=== PATIENT | female | born 1960 | race Caucasian/White ===

== ENCOUNTER → 2018-05-02 12:16 | Outpatient (CLI) | payer OTHER, SELFPAY ==
--- NOTE | 2018-05-02 | DI.MG.S_ITS ---
BILATERAL DIGITAL SCREENING MAMMOGRAM 3D/2D WITH CAD: 05/02/2018 CLINICAL: Routine screening. Family history of breast cancer. Comparison is made to exams dated: 07/13/2016 mammogram, 07/01/2015 mammogram, and 06/05/2014 mammogram - [facility]. The tissue of both breasts is heterogeneously dense. This may lower the sensitivity of mammography. Current study was also evaluated with a Computer Aided Detection (CAD) system. There is a focal asymmetry with grouped calcifications in the right breast at 8 o'clock anterior depth. No other significant masses, calcifications, or other findings are seen in either breast. IMPRESSION: INCOMPLETE: NEEDS ADDITIONAL IMAGING EVALUATION The focal asymmetry in the right breast is indeterminate. Additional views with possible ultrasound are recommended. NOTE: For mammograms, a report in lay terms will be sent to the patient. Approximately 15% of breast malignancies will not be visualized mammographically. In the management of a palpable breast mass, a negative mammogram must not discourage biopsy of a clinically suspicious lesion. Electronically Signed By: Lashon lane/gracy:05/03/2018 14:24:15 letter sent: Additional Imaging Needed ACR BI-RADS Category 0: Incomplete 3340F
== END ==
PROVIDERS: PCP Family Medicine; Visit Provider Family Medicine
DX: Z12.31 Encounter for screening mammogram for malignant neoplasm of breast (principal); Z80.3 Family history of malignant neoplasm of breast
CPT/HCPCS: 77063; 77067

== ENCOUNTER → 2018-06-07 13:47 | Outpatient (CLI) | payer OTHER, SELFPAY ==
--- NOTE | 2018-06-07 | DI.MG.S_ITS ---
UNILATERAL RIGHT DIGITAL DIAGNOSTIC MAMMOGRAM 3D/2D WITH ADDITIONAL VIEWS: 06/07/2018 CLINICAL: Additional evaluation requested from prior study. Comparison is made to exams dated: 05/02/2018 mammogram, 07/13/2016 mammogram, and 07/01/2015 mammogram - [facility]. The tissue of right breast is heterogeneously dense. This may lower the sensitivity of mammography. There is 0.6 cm oval low density focal asymmetry with an indistinct margin and grouped punctate calcifications in the right breast at 7 o'clock anterior depth. No other significant masses or calcifications are seen in the breast. IMPRESSION: INCOMPLETE: NEEDS ADDITIONAL IMAGING EVALUATION The 0.6 cm oval low density focal asymmetry in the right breast is indeterminate. An ultrasound is recommended. This exam was interpreted at Station ID: [id number]. NOTE: For mammograms, a report in lay terms will be sent to the patient. Approximately 15% of breast malignancies will not be visualized mammographically. In the management of a palpable breast mass, a negative mammogram must not discourage biopsy of a clinically suspicious lesion. Electronically Signed By: Hector mark/gracy:06/07/2018 14:18:13 letter sent: Need Ultrasound ACR BI-RADS Category 0: Incomplete 3340F
--- NOTE | 2018-06-07 | DI.US.S_ITS ---
LIMITED ULTRASOUND OF RIGHT BREAST AND AXILLA: 06/07/2018 CLINICAL: Patient returns today to evaluate a density in the right breast. Comparison is made to exams dated: 06/07/2018 mammogram, 05/02/2018 mammogram, 07/13/2016 mammogram, 07/01/2015 mammogram, and 06/05/2014 mammogram - [facility]. Color flow and real-time ultrasound of the right breast axilla were performed on the areas of interest. There is 0.6 cm x 0.4 cm x 0.7 cm oval mass with an indistinct and microlobulated margin in the right breast at 8 o'clock anterior depth. This oval mass is hypoechoic with posterior acoustic shadowing. This correlates with mammography findings. There are related calcifications. Color flow imaging demonstrates that there is no increase in vascularity. No abnormalities were seen sonographically in the right axilla. IMPRESSION: SUSPICIOUS OF MALIGNANCY The 0.6 cm x 0.4 cm x 0.7 cm oval mass in the right breast is at an intermediate suspicion for malignancy. An ultrasound guided biopsy is recommended. The findings were reviewed with the patient at the conclusion of the study. This exam was interpreted at Station ID: [id number]. Electronically Signed By: Hector mark/:06/07/2018 14:53:28 letter sent: Biopsy Required Ultrasound BI-RADS: 4b Suspicious abnormality - intermediate suspicion of malignancy
== END ==
PROVIDERS: PCP Family Medicine; Visit Provider Family Medicine
DX: R92.8 Other abnormal and inconclusive findings on diagnostic imaging of breast (principal); N63.13 Unspecified lump in the right breast, lower outer quadrant
CPT/HCPCS: 76642; 77065; G0279

== ENCOUNTER → 2018-07-12 12:37 | Outpatient (CLI) | payer OTHER, SELFPAY ==
--- NOTE | 2018-07-12 | PATH_ITS ---
[facility] Accession Number: [id number] . 01 Material submitted: . RIGHT BREAST . 01 Clinical history: . MASS 8:00 2CM FN . 01 Diagnosis: Right Breast, Mass at 8 o'clock, 2 cm from Nipple, Biopsy: Breast tissue with portions of cyst wall. Fibrocystic change including cysts, usual ductal hyperplasia, apocrine metaplasia, and fibrosis. Microcalcifications focally present in association with apocrine metaplasia. Negative for atypia, carcinoma in situ and invasive malignancy. [facility]/07/14/2018 . 01 Comment: Deeper levels examined. . 01 Electronically signed: . Betty Fuentes MD, Pathologist NPI- [id number] . 01 Gross description: . Received one formalin-filled container labeled with the patient's name and designated right breast mass, 8 o'clock, 2 cm FN. The specimen is received with plastic filter, sample loose in container. The specimen consists of multiple fragments of yellow-stearns soft tissue, which aggregate to 2.0 x 2.0 x 0.3 cm. The specimen is filtered, wrapped and entirely submitted in one cassette. Collection date 07/12/2018. Collection time per container is 1:36 p.m. Total fixation time 12 hours up to 24. ([facility]:[id number]) /[facility] . 01 Pathologist provided ICD-10: N60.11 . 01 CPT . 550599 Performed at: [address] [address], [place], [place] [id number] MD Hector Lora MD Phone: [phone]
--- NOTE | 2018-07-12 | DI.MG.S_ITS ---
UNILATERAL RIGHT DIGITAL DIAGNOSTIC MAMMOGRAM POST-NEEDLE BIOPSY: 07/12/2018 CLINICAL: Right breast mass. Comparison is made to exams dated: 06/07/2018 mammogram, 05/02/2018 mammogram, and 07/13/2016 mammogram - [facility]. The tissue of right breast is heterogeneously dense. This may lower the sensitivity of mammography. There is a marker clip in the appropriate position in the right breast at 8 o'clock anterior depth. This marker clip placement is at the biopsy site. IMPRESSION: POST PROCEDURE MAMMOGRAM FOR MARKER PLACEMENT There was a successful marker clip placement in the right breast anterior depth. NOTE: For mammograms, a report in lay terms will be sent to the patient. Approximately 15% of breast malignancies will not be visualized mammographically. In the management of a palpable breast mass, a negative mammogram must not discourage biopsy of a clinically suspicious lesion. Electronically Signed By: Jared arnold/:07/18/2018 10:25:29 ACR BI-RADS Category Post-procedure mammogram for marker placement
--- NOTE | 2018-07-12 | DI.US.S_ITS ---
ULTRASOUND GUIDED BIOPSY RIGHT BREAST USING VACUUM DEVICE WITH MARKING DEVICE INSERTED: 07/12/2018 CLINICAL: Right breast mass. PATIENT CONSENT: Risks (minor bleeding, infection, vasovagal reaction and repeat procedure), benefits and alternatives were explained to the patient and written informed consent was obtained. Correlation is made to exams dated: 06/07/2018 ultrasound, 06/07/2018 mammogram, 05/02/2018 mammogram, 07/13/2016 mammogram, and 07/01/2015 mammogram - [facility]. An ultrasound guided biopsy using real-time ultrasound was performed for the irregular shaped mass located in the right breast at 8 o'clock posterior depth. The skin was prepped in the usual manner. The abnormality was approached from the lateral aspect. A biopsy needle was placed adjacent to the abnormality under ultrasound guidance. Once the needle was documented to be in the correct location, six specimens were obtained using the Mammotome biopsy system. A clip was inserted into the biopsy cavity. The specimens were sent to the laboratory for pathological analysis. IMPRESSION: ULTRASOUND GUIDED BIOPSY BENIGN Ultrasound guided biopsy of the mass in the right breast at 8 o'clock posterior depth was successful. Pathology indicates benign fibrocystic changes, apocrine metaplasia with microcalcifications, usual ductal hyperplasia, cysts, and fibrosis. Findings are concordant with mammogram and ultrasound. Recommend return to screening mammography. This exam was interpreted at Station ID: [id number]. Jared arnold,ddp/:07/18/2018 13:53:59
== END ==
PROVIDERS: PCP Family Medicine; Visit Provider Family Medicine
DX: N60.11 Diffuse cystic mastopathy of right breast (principal); N60.81 Other benign mammary dysplasias of right breast
CPT/HCPCS: 19083; 77065

== ENCOUNTER → 2019-05-01 15:03 | Outpatient (CLI) | payer OTHER, SELFPAY ==
--- NOTE | 2019-05-01 | DI.RAD.S_ITS ---
PROCEDURE: XR FOOT LT MIN 3V INDICATIONS: left knee with weight bearing/left foot xray TECHNIQUE: 3 views of the foot were acquired. COMPARISON: None. FINDINGS: Bones: No definite fractures or dislocations. Small well-corticated ossicle medial to the navicular bone is favored to represent an accessory os carotid and avulsion fracture. No suspicious bony lesions. Minimal lucency in the calcaneus. Soft tissues: No tibiotalar joint effusion. Achilles tendon appears normal. IMPRESSION: No definite osseous abnormality. Dictated by: Major Damon M.D. on 05/01/2019 at 16:32 Approved by: Major Damon M.D. on 05/01/2019 at 16:35
--- NOTE | 2019-05-01 | DI.RAD.S_ITS ---
PROCEDURE: XR KNEE LT 3V INDICATIONS: left knee pain/left foot pain TECHNIQUE: 3 views of the knee were acquired. COMPARISON: None. FINDINGS: Bones: No fractures or dislocations. Medial joint space narrowing. Small osteophytes. No suspicious bony lesions. Soft tissues: Joint effusion is present. Small quadriceps tendon enthesophyte. No suspicious soft tissue calcifications. IMPRESSION: Moderate DJD of the left knee. Dictated by: Major Damon M.D. on 05/01/2019 at 16:31 Approved by: Major Damon M.D. on 05/01/2019 at 16:32
== END ==
PROVIDERS: PCP Family Medicine; Visit Provider Family Medicine
DX: M25.572 Pain in left ankle and joints of left foot (principal); M25.562 Pain in left knee; M17.12 Unilateral primary osteoarthritis, left knee
CPT/HCPCS: 73562; 73630

== ENCOUNTER → 2020-02-20 14:17 | Outpatient (CLI) | payer OTHER, SELFPAY ==
[2020-02-20 15:59] LABS: BUN Creatinine Ratio 27.8 (6-22); Blood Urea Nitrogen 20 mg/dL (7-17); Calcium 9.7 mg/dL (8.4-10.2); Carbon Dioxide 27 mmol/L (22-32); Chloride 102 mmol/L (98-107); Estimated Glomerular Filt Rate > 60.0 mL/min (>60); Glucose 119 mg/dL (80-110); HEMOLYSIS < 15 (0-50); Potassium 4.3 mmol/L (3.4-5.1); Sodium 139 mmol/L (137-145)
== END ==
PROVIDERS: PCP Nurse Practitioner Family; Referring Provider Nurse Practitioner; Visit Provider Nurse Practitioner
DX: I42.0 Dilated cardiomyopathy (principal)
CPT/HCPCS: 36415; 80048

== ENCOUNTER → 2020-04-23 12:54 | Outpatient (CLI) | payer OTHER, SELFPAY ==
--- NOTE | 2020-04-23 | DI.MG.S_ITS ---
BILATERAL DIGITAL SCREENING MAMMOGRAM 3D/2D WITH CAD: 04/23/2020 CLINICAL: Routine screening. Family history of breast cancer. Comparison is made to exams dated: 07/12/2018 mammogram, 06/07/2018 mammogram, 05/02/2018 mammogram, and 07/13/2016 mammogram - [facility]. The tissue of both breasts is heterogeneously dense. This may lower the sensitivity of mammography. Current study was also evaluated with a Computer Aided Detection (CAD) system. There is an irregular asymmetry with a spiculated margin and fine calcifications in the right breast posterior depth lateral region seen on the craniocaudal view only. No other significant masses, calcifications, or other findings are seen in either breast. IMPRESSION: INCOMPLETE: NEEDS ADDITIONAL IMAGING EVALUATION The irregular asymmetry in the right breast is indeterminate. A diagnostic mammogram and ultrasound is recommended. This exam was interpreted at Station ID: [id number]. NOTE: For mammograms, a report in lay terms will be sent to the patient. Approximately 15% of breast malignancies will not be visualized mammographically. In the management of a palpable breast mass, a negative mammogram must not discourage biopsy of a clinically suspicious lesion. Electronically Signed By: Katheryn dos santos/gracy:04/23/2020 17:12:16 letter sent: Additional Imaging Needed ACR BI-RADS Category 0: Incomplete 3340F
== END ==
PROVIDERS: PCP Nurse Practitioner Family; Referring Provider Nurse Practitioner Family; Visit Provider Nurse Practitioner Family
DX: Z12.31 Encounter for screening mammogram for malignant neoplasm of breast (principal); Z80.3 Family history of malignant neoplasm of breast
CPT/HCPCS: 77063; 77067

== ENCOUNTER → 2020-05-15 13:18 | Outpatient (CLI) | payer OTHER, SELFPAY ==
--- NOTE | 2020-05-15 | DI.MG.S_ITS ---
UNILATERAL RIGHT DIGITAL DIAGNOSTIC MAMMOGRAM 3D/2D WITH ADDITIONAL VIEWS: 05/15/2020 CLINICAL: Additional evaluation requested from prior study. Comparison is made to exams dated: 04/23/2020 mammogram, 07/12/2018 mammogram, and 06/07/2018 mammogram - [facility]. The tissue of right breast is heterogeneously dense. This may lower the sensitivity of mammography. The previously seen asymmetry in the right breast superior region disperses on spot compression views, compatible with normal fibroglandular breast tissue. There are scattered diffuse calcifications in the right breast. No significant masses, calcifications, or other findings are seen in the breast. IMPRESSION: BENIGN There is no mammographic evidence of malignancy. A 1 year screening mammogram is recommended. This exam was interpreted at Station ID: [id number]. NOTE: For mammograms, a report in lay terms will be sent to the patient. Approximately 15% of breast malignancies will not be visualized mammographically. In the management of a palpable breast mass, a negative mammogram must not discourage biopsy of a clinically suspicious lesion. Electronically Signed By: Ej walden/gracy:05/15/2020 13:54:47 letter sent: Normal Exam ACR BI-RADS Category 2: Benign Finding(s) 3342F
== END ==
PROVIDERS: PCP Nurse Practitioner Family; Referring Provider Nurse Practitioner Family; Visit Provider Nurse Practitioner Family
DX: R92.8 Other abnormal and inconclusive findings on diagnostic imaging of breast (principal)
CPT/HCPCS: 77065; G0279

== ENCOUNTER → 2020-09-04 14:53 | Outpatient (CLI) | payer OTHER, SELFPAY ==
[2020-09-04 16:27] LABS: BUN Creatinine Ratio 32.7 (6-22); Blood Urea Nitrogen 18 mg/dL (7-17); Calcium 9.3 mg/dL (8.4-10.2); Carbon Dioxide 31 mmol/L (22-32); Chloride 105 mmol/L (98-107); Estimated Glomerular Filt Rate > 60.0 mL/min (>60); Glucose 115 mg/dL (80-110); HEMOLYSIS < 15 (0-50); Potassium 3.9 mmol/L (3.4-5.1); Sodium 140 mmol/L (137-145)
== END ==
PROVIDERS: PCP Nurse Practitioner Family; Referring Provider Internal Medicine Cardiovascular Disease; Visit Provider Internal Medicine Cardiovascular Disease
DX: I50.20 Unspecified systolic (congestive) heart failure (principal)
CPT/HCPCS: 36415; 80048

== ENCOUNTER → 2021-05-06 15:58 | Outpatient (CLI) | payer OTHER, SELFPAY ==
--- NOTE | 2021-05-06 | DI.MG.S_ITS ---
BILATERAL DIGITAL SCREENING MAMMOGRAM 3D/2D WITH CAD: 05/06/2021 CLINICAL: Routine screening. Family history of breast cancer. Comparison is made to exams dated: 05/15/2020 mammogram, 04/23/2020 mammogram, 07/12/2018 mammogram, 06/07/2018 mammogram, 05/02/2018 mammogram, and 07/13/2016 mammogram - [facility]. The tissue of both breasts is heterogeneously dense. This may lower the sensitivity of mammography. Current study was also evaluated with a Computer Aided Detection (CAD) system. There are benign calcifications in both breasts. No significant masses, calcifications, or other findings are seen in either breast. There has been no significant interval change. IMPRESSION: BENIGN There is no mammographic evidence of malignancy. A 1 year screening mammogram is recommended. This exam was interpreted at Station ID: [id number]. NOTE: For mammograms, a report in lay terms will be sent to the patient. Approximately 15% of breast malignancies will not be visualized mammographically. In the management of a palpable breast mass, a negative mammogram must not discourage biopsy of a clinically suspicious lesion. Electronically Signed By: Vicente Arellano acr/penrad:05/06/2021 17:43:50 copy to: Christopher Ge letter sent: Normal Exam ACR BI-RADS Category 2: Benign Finding(s) 3342F
== END ==
PROVIDERS: PCP Nurse Practitioner Family; Referring Provider Nurse Practitioner Family; Visit Provider Nurse Practitioner Family
DX: Z12.31 Encounter for screening mammogram for malignant neoplasm of breast (principal); Z80.3 Family history of malignant neoplasm of breast
CPT/HCPCS: 77063; 77067

== ENCOUNTER → 2022-05-28 15:12 | Outpatient (CLI) | payer OTHER, SELFPAY ==
--- NOTE | 2022-05-28 | DI.MG.S_ITS ---
BILATERAL DIGITAL SCREENING MAMMOGRAM 3D/2D WITH CAD: 05/28/2022 CLINICAL: Routine screening. Family history of breast cancer. Comparison is made to exams dated: 05/06/2021 mammogram, 04/23/2020 mammogram, and 05/02/2018 mammogram - [facility]. Both breasts are heterogeneously dense, which may obscure small masses (category c / 51-75% glandular tissue). Current study was also evaluated with a Computer Aided Detection (CAD) system. There are benign calcifications in both breasts. There also is a biopsy clip in the right breast. No significant masses, calcifications, or other findings are seen in either breast. There has been no significant interval change. IMPRESSION: BENIGN There is no mammographic evidence of malignancy. A 1 year screening mammogram is recommended. Based on the Tyrer Cuzick model (a risk assessment model) the patient's lifetime risk is 10.6% and her 10 year risk is 4.8%. According to the ACR, ACS, and NCCN guidelines, an annual breast MRI exam along with mammogram is recommended if the patient's lifetime risk is 20% or greater. This exam was interpreted at Station ID: [id number]. NOTE: For mammograms, a report in lay terms will be sent to the patient. Approximately 15% of breast malignancies will not be visualized mammographically. In the management of a palpable breast mass, a negative mammogram must not discourage biopsy of a clinically suspicious lesion. Electronically Signed By: Katheryn dos santos/gracy:05/28/2022 18:10:03 copy to: Christopher Ge letter sent: Normal Exam ACR BI-RADS Category 2: Benign Finding(s) 3342F
== END ==
PROVIDERS: PCP Nurse Practitioner Family; Referring Provider Nurse Practitioner Family; Visit Provider Nurse Practitioner Family
DX: Z12.31 Encounter for screening mammogram for malignant neoplasm of breast (principal); Z80.3 Family history of malignant neoplasm of breast
CPT/HCPCS: 77063; 77067

== ENCOUNTER → 2023-01-24 15:34 | Outpatient (CLI) | payer OTHER, SELFPAY ==
[2023-01-24 16:41] LABS: Add Manual Diff / Slide Review NO; Basophils Absolute Auto 100 /uL (0-100); Basophils Percent Auto 0.9 % (0-2); Eosinophils Absolute Auto 100 /uL (0-450); Eosinophils Percent Auto 1.9 % (2-4); Hematocrit 43.7 % (36-46); Hemoglobin 14.9 g/dL (12.0-16.0); Lymphocytes Absolute Auto 2900 /uL (1100-4500); Lymphocytes Percent Auto 38.1 % (25-40); Mean Corpuscular HGB Conc 34.1 % (30-36); Mean Corpuscular Volume 93.9 fL (80-100); Monocytes Absolute Auto 500 /uL (0-900); Neutrophils Absolute Auto 4000 /uL (1500-7000); Neutrophils Percent Auto 53.1 % (50-75); Platelet Count 316 X10^3/uL (150-400); Red Blood Cell Count 4.66 X10^6/uL (4.0-5.2); Red Cell Distribution Width 12.8 % (11.6-14.8); White Blood Cell Count 7.6 X10^3/uL (4.5-11.0)
[2023-01-24 17:41] LABS: BUN Creatinine Ratio 18.4 (6-22); Blood Urea Nitrogen 9 mg/dL (7-17); Calcium 8.9 mg/dL (8.4-10.2); Carbon Dioxide 26 mmol/L (22-32); Chloride 102 mmol/L (98-107); Cholesterol 205 mg/dL (140-199); Estimated Glomerular Filt Rate > 60 mL/min (>60); Glucose 135 mg/dL (80-110); HDL Cholesterol 60 mg/dL (40-60); HEMOLYSIS < 15 (0-50); LDL Cholesterol Calculated 108 mg/dL (<100); Potassium 3.9 mmol/L (3.4-5.1); Sodium 137 mmol/L (137-145); Triglycerides 183 mg/dL (35-150)
== END ==
PROVIDERS: PCP Nurse Practitioner Family; Referring Provider Internal Medicine Cardiovascular Disease; Visit Provider Internal Medicine Cardiovascular Disease
DX: E78.5 Hyperlipidemia, unspecified (principal); I10 Essential (primary) hypertension
CPT/HCPCS: 36415; 80048; 80061; 85025

== ENCOUNTER → 2023-05-30 11:03 | Outpatient (CLI) | payer OTHER, SELFPAY ==
--- NOTE | 2023-05-30 | DI.MG.S_ITS ---
BILATERAL DIGITAL SCREENING MAMMOGRAM 3D/2D WITH CAD: 05/30/2023 CLINICAL: Routine screening. Family history of breast cancer. Comparison is made to exams dated: 05/28/2022 mammogram, 05/06/2021 mammogram, and 04/23/2020 mammogram - [facility]. Both breasts are heterogeneously dense, which may obscure small masses (category c / 51-75% glandular tissue). Current study was also evaluated with a Computer Aided Detection (CAD) system. There is a focal asymmetry in the right breast at 1 o'clock anterior depth. No other significant masses, calcifications, or other findings are seen in either breast. IMPRESSION: INCOMPLETE: NEEDS ADDITIONAL IMAGING EVALUATION The focal asymmetry in the right breast is indeterminate. Additional views with possible ultrasound are recommended. Based on the Tyrer Cuzick model (a risk assessment model) the patient's lifetime risk is 10.2% and her 10 year risk is 4.8%. According to the ACR, ACS, and NCCN guidelines, an annual breast MRI exam along with mammogram is recommended if the patient's lifetime risk is 20% or greater. This exam was interpreted at Station ID: [id number]. NOTE: For mammograms, a report in lay terms will be sent to the patient. Approximately 15% of breast malignancies will not be visualized mammographically. In the management of a palpable breast mass, a negative mammogram must not discourage biopsy of a clinically suspicious lesion. Electronically Signed By: Lashon lane/gracy:05/30/2023 14:30:04 copy to: Christopher Ge letter sent: Additional Imaging Needed ACR BI-RADS Category 0: Incomplete 3340F
== END ==
PROVIDERS: PCP Nurse Practitioner Family; Referring Provider Nurse Practitioner Family; Visit Provider Nurse Practitioner Family
DX: Z12.31 Encounter for screening mammogram for malignant neoplasm of breast (principal); Z80.3 Family history of malignant neoplasm of breast
CPT/HCPCS: 77063; 77067

== ENCOUNTER 2023-06-16 21:02 | Emergency (ER) | payer OTHER, SELFPAY ==
[2023-06-16] VITALS (14 sets, daily range): BP systolic 150–224; BP diastolic 72–93; PULSE 52–100; RESP 24; TEMP 36.4; O2SAT 81–100; BMI 36.5
--- NOTE | 2023-06-16 21:33 | DI.CT.S_ITS ---
PROCEDURE: CT ABDOMEN PELVIS W CON INDICATIONS: diffuse abd pain TECHNIQUE: After the administration of oral and IV contrast, axial sections were acquired from the lung bases to the pubic symphysis. Coronal and sagittal reformats were performed. For radiation dose reduction, the following was used: automated exposure control, adjustment of mA and/or kV according to patient size. COMPARISON: None. FINDINGS: Image quality: Excellent. Lung bases: Unremarkable. Heart: No significant findings. ABDOMEN: Liver: No solid mass. Hepatic steatosis is present. Gallbladder: Removed. Biliary ducts: No biliary dilation. Pancreas: No ductal dilation. Spleen: Size is within normal limits. Adrenal Glands: No adrenal nodules. Kidneys and Ureters: No hydronephrosis. No solid mass. No complex renal cystic lesion which requires follow up. Stomach and Bowel: There is wall thickening with inflammatory change of the descending and sigmoid colon with diverticula. No evidence of abscess or perforation.. Hiatal hernia is present with distal esophageal thickening. Peritoneum: No abnormal intraperitoneal fluid. No free air. Ventral Wall: No hernia. Abdominal Nodes: No retroperitoneal or mesenteric adenopathy by size criteria. Vessels: Aorta and inferior vena cava are normal in size. PELVIS: Pelvic Organs: Unremarkable. Bladder: Unremarkable. Pelvic Nodes: No enlarged lymph nodes. Miscellaneous: No inguinal hernias are seen. Bones: No aggressive osseous abnormality. IMPRESSION: Thickening and inflammatory change of the descending and sigmoid colon with diverticula most consistent with colitis secondary to diverticulitis. Dictated by: Shaniqua Holley M.D. on 06/16/2023 at 23:13 Approved by: Shaniqua Holley M.D. on 06/16/2023 at 23:16
--- NOTE | 2023-06-16 21:33 | ED.NAVMDI ---
HPI - Nausea/Vomiting/Diarrhea General Chief complaint: Nausea/Vomiting/Diarrhea Stated complaint: V/D/Cramps/ stomach pain/ T-0 Time Seen by Provider: 06/16/23 21:20 Source: patient Mode of arrival: Wheelchair History of Present Illness HPI Narrative: This 62-year-old female with a history of type 2 diabetes and multiple previous abdominal surgeries presenting with diffuse abdominal pain nausea vomiting and diarrhea. States that symptoms began about 4 hours prior to arrival. Had diffuse crampy abdominal pain mainly lower and then developed diarrhea which is nonbloody. Has also had some nausea and vomiting. Says that her symptoms have improved although her abdomen still feels diffusely uncomfortable. Bowel habits were normal previous to this. She is not had fevers, she does say that she felt hot and cold with this. Said that she had a hamburger for lunch. Also reports that she had been having episodic crampy abdominal pain and diarrhea for a few months but has not seen her primary care provider about this. She is status post cholecystectomy, says that she had an exploratory laparotomy for abdominal pain many years ago and had bilateral inguinal hernia repairs as an infant. Related Data Home Medications Medication Instructions Recorded Confirmed aspirin 81 mg tablet,delayed 81 mg PO QDAY ##0 02/09/17 12/04/19 release ferrous sulfate 325 mg (65 mg 27 mg PO QDAY ##0 02/09/17 12/04/19 iron) tablet (Iron (ferrous sulfate)) metoprolol succinate 50 mg 50 mg PO BID ##0 02/09/17 12/04/19 tablet,extended release 24 hr (Toprol XL) ascorbic acid (vitamin C) 500 mg 500 mg PO DAILY 12/04/19 12/04/19 capsule atorvastatin 40 mg tablet 40 mg PO DAILY 12/04/19 12/04/19 benazepril 20 mg tablet 20 mg PO DAILY 12/04/19 12/04/19 cholecalciferol (vitamin D3) 125 125 mcg PO DAILY 12/04/19 12/04/19 mcg (5,000 unit) capsule clonidine HCl 0.1 mg tablet 0.1 mg PO BID 12/04/19 12/04/19 hydrochlorothiazide 25 mg tablet 25 mg PO DAILY 12/04/19 12/04/19 imipramine HCl 10 mg tablet 40 mg PO DAILY 12/04/19 12/04/19 metformin 500 mg tablet 500 mg PO DAILY 12/04/19 12/04/19 chasnzgd-[id number]-ciry-FA-Ca carb-vit K 1 tab PO DAILY 12/04/19 12/04/19 18 mg iron-400 mcg-500 mg tablet omega-3 fatty acids 1,000 mg 1,000 mg PO DAILY 12/04/19 12/04/19 capsule (Fish Oil Concentrate) spironolactone 25 mg tablet 25 mg PO DAILY 12/04/19 12/04/19 vitamin B complex 1 tab PO DAILY 12/04/19 12/04/19 Previous Rx's Medication Instructions Recorded atomoxetine 100 mg capsule 100 mg PO DAILY #90 caps 12/04/19 amoxicillin 875 mg-potassium 1 tab PO BID #20 tabs 06/16/23 clavulanate 125 mg tablet ondansetron 4 mg disintegrating 4 mg PO Q8H #7 tabs 06/16/23 tablet oxycodone 5 mg tablet 5 mg PO Q6H PRN pain #10 tabs 06/16/23 Allergies Allergy/AdvReac Type Severity Reaction Status Date / Time morphine [MORPHINE] Allergy Unknown Verified 12/04/19 13:07 Patient History Surgical History (Updated 10/25/17 @ 06:22 by Conversion Provider) Status post surgery (12/15/15) Status post dilation and curettage (12/12/15) Status post tubal ligation History of carpal tunnel repair Status post laparoscopic cholecystectomy History of tonsillectomy History of third molar tooth extraction Family History (Updated 11/28/16 @ 00:00 by Conversion Provider) Child Age: 41 High cholesterol Father Age: 91 [place] Heart disease High cholesterol GERD (gastroesophageal reflux disease) Grandmother Hypertension Stroke Mother High cholesterol Grandmother Hypertension Social History Smoking Status: Never smoker Smoking Status: Never smoker Substance Use Type: does not use Exam Initial Vital Signs Initial Vital Signs: Vital Signs Temperature 97.6 F 06/16/23 21:07 Pulse Rate 81 06/16/23 21:07 Respiratory Rate 24 06/16/23 21:07 Blood Pressure 172/74 H 06/16/23 21:07 Pulse Oximetry 100 06/16/23 21:07 Oxygen Delivery Method Room Air 06/16/23 21:07 Course Orders Ordered: ED Orders 06/16/23 21:33 CT abdomen pelvis w con Stat 06/16/23 21:41 Complete Blood Count AUTO DIFF Stat Comprehensive Metabolic Panel Stat Lipase Stat Discontinued Medications Clonidine HCl (Clonidine 0.1 Mg Tablet) 0.1 mg PO NOW ONE Stop: 06/16/23 23:08 Last Admin: 06/16/23 23:19 Dose: 0.1 mg Documented By: NICK Sodium Chloride (Normal Saline 0.9%) 1,000 mls @ 1,000 mls/hr IV BOLUS ONE Stop: 06/16/23 22:31 Last Infusion: 06/16/23 23:03 Dose: Infused Documented By: Admin: 06/16/23 21:45 Dose: 1,000 mls/hr Documented By: NICK Ampicillin Sodium/Sulbactam (Sodium 3 gm/ Sodium Chloride) 100 mls @ 200 mls/hr IV NOW ONE Stop: 06/16/23 23:40 Last Infusion: 06/17/23 00:03 Dose: Infused Documented By: Admin: 06/16/23 23:44 Dose: 200 mls/hr Documented By: NICK Metoprolol Succinate (Metoprolol Er 50 Mg Tablet) 50 mg PO NOW ONE Stop: 06/16/23 23:08 Last Admin: 06/16/23 23:21 Dose: 50 mg Documented By: NICK Ondansetron HCl (Ondansetron 4 Mg/2 Ml Inj) 4 mg IV NOW ONE Stop: 06/16/23 21:33 Last Admin: 06/16/23 21:45 Dose: 4 mg Documented By: NICK Vital Signs Vital signs: Vital Signs - 8 hr 06/16/23 21:07 06/16/23 21:21 06/16/23 21:21 Temperature 97.6 F Pulse Rate 81 72 Respiratory Rate 24 Blood Pressure 172/74 H 150/73 H Pulse Oximetry 100 100 Oxygen Delivery Method Room Air 06/16/23 21:30 06/16/23 21:31 06/16/23 21:31 Temperature Pulse Rate 73 69 Respiratory Rate Blood Pressure 189/72 H Pulse Oximetry 100 100 Oxygen Delivery Method 06/16/23 22:12 06/16/23 22:15 06/16/23 22:15 Temperature Pulse Rate 82 75 Respiratory Rate Blood Pressure 190/83 H 190/83 H Pulse Oximetry 98 100 Oxygen Delivery Method 06/16/23 22:37 06/16/23 22:38 06/16/23 22:38 Temperature Pulse Rate 52 L 64 Respiratory Rate Blood Pressure 210/81 H Pulse Oximetry 81 L 100 Oxygen Delivery Method 06/16/23 23:00 06/16/23 23:01 06/16/23 23:01 Temperature Pulse Rate 80 81 Respiratory Rate Blood Pressure 224/91 H Pulse Oximetry 100 100 Oxygen Delivery Method 06/16/23 23:19 06/16/23 23:21 06/16/23 23:21 Temperature Pulse Rate 100 H 100 H 100 H Respiratory Rate Blood Pressure 224/93 H 224/93 H Pulse Oximetry 97 Oxygen Delivery Method 06/16/23 23:21 06/16/23 23:30 06/16/23 23:30 Temperature Pulse Rate 69 Respiratory Rate Blood Pressure 192/79 H 193/81 H Pulse Oximetry 100 Oxygen Delivery Method 06/16/23 23:54 06/16/23 23:54 Temperature Pulse Rate 92 H Respiratory Rate Blood Pressure 216/91 H Pulse Oximetry 100 Oxygen Delivery Method MDM - Nausea/Vomiting/Diarrhea Lab Data Lab results narrative: CBC is remarkable for a white count of 17.3. Hemoglobin and hematocrit are stable. Chemistries are unremarkable. Lipase is normal. Urinalysis remarkable only for ketones in the urine. 06/16/23 21:41 06/16/23 21:41 Labs: Lab Results 06/16/23 06/16/23 Range/Units 21:41 22:18 WBC 17.3 H (4.5-11.0) X10^3/uL RBC 4.78 (4.0-5.2) X10^6/uL Hgb 15.1 (12.0-16.0) g/dL Hct 44.3 (36-46) % MCV 92.6 (80-100) fL MCH 31.6 (26-34) PG MCHC 34.1 (30-36) % RDW 13.2 (11.6-14.8) % Plt Count 313 (150-400) X10^3/uL Neut % (Auto) 86.0 H (50-75) % Lymph % (Auto) 8.8 L (25-40) % [place] % (Auto) 4.7 (3-14) % Eos % (Auto) 0.1 L (2-4) % Baso % (Auto) 0.4 (0-2) % Neut # (Auto) 76214 H (6089-5782) /uL Lymph # (Auto) 1500 (1115-8213) /uL [place] # (Auto) 800 (0-900) /uL Eos # (Auto) 0 (0-450) /uL Baso # (Auto) 100 (0-100) /uL Sodium 136 L (137-145) mmol/L Potassium 3.8 (3.4-5.1) mmol/L Chloride 99 (98-107) mmol/L Carbon Dioxide 24 (22-32) mmol/L BUN 14 (7-17) mg/dL Creatinine 0.53 (0.52-1.04) mg/dL Estimated GFR > 60 (>60) mL/min BUN/Creatinine Ratio 26.4 H (6-22) Glucose 131 H (80-110) mg/dL Calcium 9.8 (8.4-10.2) mg/dL Total Bilirubin 1.1 (0.2-1.3) mg/dL AST 42 H (14-36) IU/L ALT 47 H (<35) IU/L Alkaline Phosphatase 67 (38-126) U/L Total Protein 7.3 (6.3-8.2) g/dL Albumin 4.6 (3.5-5.0) g/dL Globulin 2.7 (1.7-4.1) g/dL Albumin/Globulin Ratio 1.7 (1.0-2.8) Lipase 142 (23-300) U/L Ur Bilirubin Confirm Cancelled Urine Dip Bedside Urine Glucose Negative Bedside Urine Bilirubin + 1 Bedside Urine Ketone +++ 80 Urine Specific [place] 1.015 Bedside Urine Occult Blood - Negative Bedside Urine pH 8 Bedside Urine Protein - Negative Bedside Urine Urobilinogen - Negative Bedside Urine Nitrite - Negative Bedside Urine Leukocytes - Negative Esterase Imaging Data CT scan - abdomen/pelvis: My Impression: Independently reviewed, inflammatory changes and diverticular disease in the left lower quadrant Radiologist's Impression: IMPRESSION: Thickening and inflammatory change of the descending and sigmoid colon with diverticula most consistent with colitis secondary to diverticulitis. [facility] Narrative Medical decision making narrative: 62-year-old female presenting with nausea vomiting and diarrhea. Abdominal exam is reassuring although she did have some left-sided tenderness. Differential would include diverticulitis, bowel obstruction, urinary tract infection such as pyelonephritis or ureteral stone. Urinalysis does not suggest infection, no stone is seen on CT, CT does have evidence of diverticulitis. Patient has mild leukocytosis he is otherwise nontoxic and I think an appropriate candidate for outpatient treatment. No perforation or abscess of the diverticulitis on CT. She was given 3 g of Unasyn IV here and I wrote a prescription for Augmentin. The patient was also discharged with a small amount of pain medication recommended clear liquid diet she was given ondansetron as well. Discharge Plan Departure Patient Disposition: Home Clinical Impression: Diverticulitis Instructions: DI for Diverticulitis Activity Restrictions/Additional Instructions: Clear liquid diet until symptoms are improving, be sure you are getting adequate fluids. Rest, take the prescribed antibiotics. If you are having increasing pain fevers uncontrolled vomiting or other acute symptoms return to the emergency department. Make an appointment to follow up with your primary care provider within 1 week. Prescriptions: New amoxicillin-pot clavulanate 875-125 mg tablet 1 tab PO BID Qty: 20 0RF ondansetron 4 mg tablet,disintegrating 4 mg PO Q8H Qty: 7 0RF oxycodone 5 mg tablet 5 mg PO Q6H PRN (Reason: pain) Qty: 10 0RF No Action clonidine HCl 0.1 mg tablet 0.1 mg PO BID benazepril 20 mg tablet 20 mg PO DAILY hydrochlorothiazide 25 mg tablet 25 mg PO DAILY spironolactone 25 mg tablet 25 mg PO DAILY cholecalciferol (vitamin D3) 125 mcg (5,000 unit) capsule 125 mcg PO DAILY omega-3 fatty acids [Fish Oil Concentrate] 1,000 mg capsule 1,000 mg PO DAILY metformin 500 mg tablet 500 mg PO DAILY imipramine HCl 10 mg tablet 40 mg PO DAILY [id number]-rd-[id number]-Ca carb-vit K 18 mg iron-400 mcg-500 mg tablet 1 tab PO DAILY Rx Instructions: give with meal/snack ascorbic acid (vitamin C) 500 mg capsule 500 mg PO DAILY vitamin B complex Tablet 1 tab PO DAILY atorvastatin 40 mg tablet 40 mg PO DAILY atomoxetine 100 mg capsule 100 mg PO DAILY Qty: 90 3RF aspirin 81 MG tablet,delayed release (DR/EC) 81 mg PO QDAY Qty: 0 ferrous sulfate [Iron (ferrous sulfate)] 325 mg (65 mg iron) tablet 27 mg PO QDAY Qty: 0 metoprolol succinate [Toprol XL] 50 MG tablet extended release 24 hr 50 mg PO BID Qty: 0 Referrals: Jose De Jesus Xiong ARNP [Primary Care Provider] - Stand Alone Forms: Patient Portal/API
[2023-06-16] MEDS: ONDANSETRON 4 MG/2 ML INJ IV (21:45)
[2023-06-16] MEDS: SODIUM CHLORIDE 0.9% 1,000 ML 1000 ML IV (21:45)
[2023-06-16 21:56] LABS: Add Manual Diff / Slide Review NO; Basophils Absolute Auto 100 /uL (0-100); Basophils Percent Auto 0.4 % (0-2); Eosinophils Absolute Auto 0 /uL (0-450); Eosinophils Percent Auto 0.1 % (2-4); Hematocrit 44.3 % (36-46); Hemoglobin 15.1 g/dL (12.0-16.0); Lymphocytes Absolute Auto 1500 /uL (1100-4500); Lymphocytes Percent Auto 8.8 % (25-40); Mean Corpuscular HGB Conc 34.1 % (30-36); Mean Corpuscular Hemoglobin 31.6 PG (26-34); Mean Corpuscular Volume 92.6 fL (80-100); Monocytes Absolute Auto 800 /uL (0-900); Monocytes Percent Auto 4.7 % (3-14); Neutrophils Absolute Auto 14900 /uL (1500-7000); Platelet Count 313 X10^3/uL (150-400); Red Blood Cell Count 4.78 X10^6/uL (4.0-5.2); Red Cell Distribution Width 13.2 % (11.6-14.8); White Blood Cell Count 17.3 X10^3/uL (4.5-11.0)
[2023-06-16 22:04] LABS: Alanine Aminotransferase 47 IU/L (<35); Albumin 4.6 g/dL (3.5-5.0); Albumin Globulin Ratio 1.7 (1.0-2.8); Alkaline Phosphatase 67 U/L (38-126); Aspartate Aminotransferase 42 IU/L (14-36); BUN Creatinine Ratio 26.4 (6-22); Bilirubin Total 1.1 mg/dL (0.2-1.3); Blood Urea Nitrogen 14 mg/dL (7-17); Calcium 9.8 mg/dL (8.4-10.2); Carbon Dioxide 24 mmol/L (22-32); Chloride 99 mmol/L (98-107); Estimated Glomerular Filt Rate > 60 mL/min (>60); Globulin 2.7 g/dL (1.7-4.1); Glucose 131 mg/dL (80-110); HEMOLYSIS 16 (0-50); Lipase 142 U/L (23-300); Potassium 3.8 mmol/L (3.4-5.1); Sodium 136 mmol/L (137-145); Total Protein 7.3 g/dL (6.3-8.2)
[2023-06-16] MEDS: cloNIDine 0.1 MG TABLET PO (23:19)
[2023-06-16] MEDS: METOPROLOL ER 50 MG TABLET PO (23:21)
[2023-06-16] MEDS: AMPICILLIN/SULBACTAM 3 GM 3 GM in SODIUM CHLORIDE 0.9% 100 ML IV (23:44)
== END 2023-06-17 00:06 | disposition home or self-care (01) ==
PROVIDERS: Emergency Provider Emergency Medicine; PCP Nurse Practitioner Family
DX: K57.92 Diverticulitis of intestine, part unspecified, without perforation or abscess without bleeding (principal); R11.2 Nausea with vomiting, unspecified; R19.7 Diarrhea, unspecified
CPT/HCPCS: 36415; 74177; 80053; 81003; 83690; 85025; 96365; 96375; 99284; J0295; J2405; Q9967

== ENCOUNTER → 2023-06-24 11:54 | Outpatient (CLI) | payer OTHER, SELFPAY ==
--- NOTE | 2023-06-24 | DI.MG.S_ITS ---
UNILATERAL RIGHT DIGITAL DIAGNOSTIC MAMMOGRAM 3D/2D WITH ADDITIONAL VIEWS: 06/24/2023 CLINICAL: Additional evaluation requested from prior study. Comparison is made to exams dated: 05/30/2023 mammogram, 05/28/2022 mammogram, and 05/06/2021 mammogram - [facility]. The right breast is heterogeneously dense, which may obscure small masses (category c / 51-75% glandular tissue). There is an oval focal asymmetry in the right breast at 2 o'clock in the retroareolar region. This is seen in additional views. No other significant masses or calcifications are seen in the breast. IMPRESSION: INCOMPLETE: NEEDS ADDITIONAL IMAGING EVALUATION The oval focal asymmetry in the right breast is indeterminate. An ultrasound is recommended. Based on the Tyrer Cuzick model (a risk assessment model) the patient's lifetime risk is 10.2% and her 10 year risk is 4.8%. According to the ACR, ACS, and NCCN guidelines, an annual breast MRI exam along with mammogram is recommended if the patient's lifetime risk is 20% or greater. This exam was interpreted at Station ID: [id number]. NOTE: For mammograms, a report in lay terms will be sent to the patient. Approximately 15% of breast malignancies will not be visualized mammographically. In the management of a palpable breast mass, a negative mammogram must not discourage biopsy of a clinically suspicious lesion. Electronically Signed By: Rip Jaramillo M.D. lc/:06/24/2023 13:33:04 copy to: Christopher Ge [facility] BI-RADS Category 0: Incomplete [id number]
--- NOTE | 2023-06-24 | DI.US.S_ITS ---
ULTRASOUND OF RIGHT BREAST: 06/24/2023 CLINICAL: Patient returns today to evaluate a focal asymmetry in the right breast. Comparison is made to exams dated: 06/24/2023 mammogram, 05/30/2023 mammogram, 05/28/2022 mammogram, 05/06/2021 mammogram, 05/15/2020 mammogram, and 07/12/2018 mammogram - [facility]. Color flow and real-time ultrasound of the right breast were performed. Whit[place] scale images of the real-time examination were reviewed. There is a benign 0.3 cm x 0.4 cm x 0.3 cm cyst in the right breast at 3 o'clock anterior depth 1 cm from the nipple. There also is a benign 0.4 cm x 0.4 cm x 0.3 cm oval cyst in the right breast at 12 o'clock anterior depth 2 cm from the nipple. IMPRESSION: BENIGN There is no sonographic evidence of malignancy. The 0.3 cm x 0.4 cm x 0.3 cm cyst in the right breast at 3 o'clock anterior depth is benign. This one probably correlates to the mammographic focal asymmetry measuring 0.4-0.5cm. The 0.4 cm x 0.4 cm x 0.3 cm oval cyst in the right breast at 12 o'clock anterior depth is benign. This is probably incidental. Return to annual mammogram screening schedule is recommended. This exam was interpreted at Station ID: [id number]. Electronically Signed By: Rip Jaramillo M.D. lc/:06/24/2023 13:35:03 copy to: Christopher Ge letter sent: Normal Exam Ultrasound BI-RADS: 2 Benign
== END ==
LOC: MAMMO 11:55
PROVIDERS: PCP Nurse Practitioner Family; Referring Provider Nurse Practitioner Family; Visit Provider Nurse Practitioner Family
DX: R92.8 Other abnormal and inconclusive findings on diagnostic imaging of breast (principal); N60.01 Solitary cyst of right breast
CPT/HCPCS: 76642; 77065; G0279

== ENCOUNTER → 2024-06-25 14:13 | Outpatient (CLI) | payer MEDICARE, OTHER, SELFPAY ==
--- NOTE | 2024-06-25 14:21 | DI.MG.S_ITS ---
BILATERAL DIGITAL SCREENING MAMMOGRAM 3D/2D WITH CAD: 06/25/2024 CLINICAL: Routine screening. Family history of breast cancer. Comparison is made to exams dated: 06/24/2023 mammogram, 05/30/2023 mammogram, 05/28/2022 mammogram, and 05/06/2021 mammogram - [facility]. The breasts are heterogeneously dense, which may obscure small masses (category c / 51-75% glandular tissue). Current study was also evaluated with a Computer Aided Detection (CAD) system. There is a benign global asymmetry in the right breast. There also are benign calcifications in the left breast. Additionally, there is a biopsy clip in the right breast. No significant masses, calcifications, or other findings are seen in either breast. There has been no significant interval change. IMPRESSION: BENIGN There is no mammographic evidence of malignancy. A 1 year screening mammogram is recommended. Based on the Tyrer Cuzick model (a risk assessment model) the patient's lifetime risk is 9.8% and her 10 year risk is 4.8%. According to the ACR, ACS, and NCCN guidelines, an annual breast MRI exam along with mammogram is recommended if the patient's lifetime risk is 20% or greater. This exam was interpreted at Station ID: [id number]. NOTE: For mammograms, a report in lay terms will be sent to the patient. Approximately 15% of breast malignancies will not be visualized mammographically. In the management of a palpable breast mass, a negative mammogram must not discourage biopsy of a clinically suspicious lesion. Electronically Signed By: Katheryn dos santos/gracy:06/25/2024 16:25:00 copy to: Christopher Ge letter sent: Normal Exam ACR BI-RADS Category 2: Benign
== END ==
PROVIDERS: PCP Family Medicine; Referring Provider Family Medicine; Visit Provider Family Medicine
DX: Z12.31 Encounter for screening mammogram for malignant neoplasm of breast (principal); Z80.3 Family history of malignant neoplasm of breast; R92.333 Mammographic heterogeneous density, bilateral breasts
CPT/HCPCS: 77063; 77067